=== PATIENT | female | born 1975 | race Two or more races ===

== ENCOUNTER 2023-07-28 18:34 | Emergency (ER) | payer OTHER, SELFPAY ==
[2023-07-28 19:04] VITALS: BP 118/78; PULSE 73; RESP 18; TEMP 36.6; O2SAT 96; BMI 34.2
--- NOTE | 2023-07-28 19:14 | CRLHL7_ITS ---
For Patients: As a result of the Cures Act, medical imaging exams and procedure reports are released immediately into your electronic medical record. You may view this report before your referring provider. If you have questions, please contact your health care provider. INDICATION: Chest pain. TECHNIQUE: Chest 2 view. Permanently recorded images are archived. COMPARISON: None. FINDINGS: Cardiovascular and mediastinum: Heart size and vasculature are normal in caliber and appearance. Lungs and pleural spaces: The lungs are clear. No pleural effusion or pneumothorax. Bones and soft tissues: Unremarkable for age. IMPRESSION: No evidence of an acute pulmonary process. Dictated by Jamal Maurer MD @ 07/28/2023 8:41:21 PM (Electronically Signed)
[2023-07-28 19:22] LABS: Basophils Absolute Auto 0.03 K/uL (0.00-0.30); Basophils Percent Auto 0.5 % (0.0-3.0); Eosinophils Absolute Auto 0.21 K/uL (0.00-0.50); Eosinophils Percent Auto 3.3 % (0.0-7.0); Hematocrit 37.3 % (33.0-51.0); Hemoglobin* 12.3 gm/dL (12.0-16.0); Immature Granulocytes Abs Auto 0.02 K/uL (0.00-0.30); Immature Granulocytes Pct Auto 0.3 %; Lymphocytes Absolute Auto 2.44 K/uL (0.90-2.90); Lymphocytes Percent Auto 38.8 % (20-44); Mean Corpuscular HGB Conc 33 gm/dL (32-36); Mean Corpuscular Hemoglobin 31 pg (26-34); Mean Corpuscular Volume 94 fL (80-100); Monocytes Percent Auto 8.9 % (0.0-11.0); Neutrophils Absolute Auto 3.03 K/uL (1.7-7.0); Neutrophils Percent Auto 48.2 % (42.0-72.0); Platelet Count* 307 K/uL (140-440); RDW Coefficient of Variation % 11.9 % (11.5-15.5); Red Blood Count 3.98 m/uL (4.00-5.20); White Blood Count* 6.29 K/uL (4.50-11.00)
[2023-07-28 19:30] VITALS: BP 108/91; PULSE 73; RESP 20; O2SAT 96
[2023-07-28 19:31] LABS: Slide Review Reflex No
[2023-07-28 19:31] LABS: Appearance Urine Clear (Clear); Bilirubin Urine Negative (Negative); Blood Urine 1+ (Negative); Color Urine Yellow (Yellow); Glucose Urine Negative (Negative); Ketones Urine Negative (Negative); Leukocyte Esterase Urine Trace (Negative); Nitrite Urine Negative (Negative); Protein Urine Negative (Negative); Specific Gravity Urine >= 1.030 (1.000-1.030); Urobilinogen Urine 0.2 (0.2-1.0); pH Urine 5.5 (5.0-8.5)
[2023-07-28 19:34] LABS: Chloride* 107 mmol/L (96-114); Sodium* 136 mmol/L (135-149)
[2023-07-28] MEDS: KETOROLAC 15 MG/ML inj IVP (19:35)
[2023-07-28 19:36] LABS: Creatinine* 0.5 mg/dL (0.5-1.5); Est. Creatinine Clearance* 112.59; Estimated Glomerular Filt Rate 115 ml/min
[2023-07-28 19:37] LABS: Alanine Aminotransferase* 17 U/L (4-35); Alkaline Phosphatase* 68 U/L (40-150); Anion Gap 4 mEq/L (7-15); Aspartate Amino Transferase* 21 U/L (12-35); Bilirubin Total* 0.3 mg/dL (0.1-1.5); Blood Urea Nitrogen* 19 mg/dL (5-24); Calcium* 8.6 mg/dL (8.4-10.6); Carbon Dioxide* 25 mmol/L (20-32); Glucose* 116 mg/dL (60-115); Total Protein* 6.8 g/dL (6.0-8.3)
[2023-07-28 19:49] LABS: Troponin I* < 0.01 ng/mL (0.01-0.04)
[2023-07-28 19:59] LABS: PCR FLU A Negative PCR FLU A (Negative); PCR FLU B Negative PCR FLU B (Negative); PCR RSV Negative PCR RSV (Negative)
[2023-07-28 20:04] VITALS: PULSE 70; O2SAT 99
[2023-07-28 20:15] VITALS: PULSE 70; O2SAT 98
--- NOTE | 2023-07-28 20:15 | ED.GENADULT ---
HPI - General Adult General Date Seen: 07/28/23 Chief complaint: Chest Pain Stated complaint: chest pain Time Seen by Provider: 07/28/23 19:07 Source: patient Mode of arrival: ambulatory Limitations: no limitations History of Present Illness HPI narrative: Patient is a 47-year-old female presenting for viral symptoms. She states for the past couple weeks she has been having intermittent shortness of breath and is having chest pain. Is also having cough with congestion. Admits to muscle aches. Has not had any fevers or chills but does admit to some occasional nausea. She initially went to her clinic and was sent here for a ACS workup. She quit smoking 3 months ago. She does not have any parents and siblings that had coronary artery disease before the age of 65. She denies hemoptysis, history of cancer, recent surgeries or trauma. She is not on any current control. Has not had any unilateral leg swelling. She is not aware of any sick contacts. Currently she states she is just feeling fatigued with the midsternal chest pain. She denies ever having symptoms like this before Related Data Home Medications Medication Instructions Recorded Confirmed No Known Home Medications 07/28/23 07/28/23 Allergies Allergy/AdvReac Type Severity Reaction Status Date / Time morphine Allergy Verified 07/28/23 17:26 Review of Systems Status of ROS: Reports: 10 or more systems reviewed and unremarkable except as noted in History and below PFSH [facility] Social History Smoking Status: Never smoker How often do you have a drink containing alcohol: never How often do you have six or more drinks on one occasion: Never AUDIT-C Alcohol total score: 0 Non-prescribed substance use: denies use Exam Narrative: Exam Narrative: Const: Well-nourished, Well-developed, in mild distress Eyes: PERRL, no conjunctival injection, and symmetrical lids HENT: Atraumatic external nose and ears. Moist mucous membranes. Neck: Symmetric, trachea midline, No thyromegaly. CVS: RRR, No murmurs or gallops. Peripheral pulses 2+ and equal in all extremities RESP: Unlabored respiratory effort. Clear to auscultation bilaterally. GI: Nontender/Nondistended, No rebound or guarding. MSK:Extremities w/o deformity, Normal Active ROM Skin: Warm, Dry. No rashes or lesions. Neuro: Normal Muscle tone, No focal neurological deficits. Psych: Awake, Alert, & Oriented x3. Appropriate mood and affect. Const: Vital Signs, click to edit/add: Vital Signs - 24 hr 07/28/23 19:04 07/28/23 19:30 07/28/23 20:04 Temperature 97.8 F Pulse Rate 70 Pulse Rate [Pulse Oximeter] 73 73 Respiratory Rate 18 20 Blood Pressure [Ri ght Upper Arm] 118/78 108/91 H Pulse Oximetry 96 96 99 Oxygen Delivery Me thod Room Air Room Air 07/28/23 20:15 07/28/23 20:30 Temperature Pulse Rate 70 70 Pulse Rate [Pulse Oximeter] Respiratory Rate Blood Pressure [Ri ght Upper Arm] Pulse Oximetry 98 97 Oxygen Delivery Me thod Course Vital Signs Vital signs: Initial Vital Signs Temperature 97.8 F 07/28/23 19:04 Temperature Source Temporal Artery Scan 07/28/23 19:04 Pulse Rate 73 07/28/23 19:04 Respiratory Rate 18 07/28/23 19:04 Blood Pressure 118/78 07/28/23 19:04 Blood Pressure Mean 91 07/28/23 19:04 Blood Pressure Position Sitting 07/28/23 19:04 Pulse Oximetry 96 07/28/23 19:04 Oxygen Delivery Method Room Air 07/28/23 19:04 Vital Signs Temperature 97.8 F 07/28/23 19:04 Pulse Rate 73 07/28/23 19:04 Respiratory Rate 18 07/28/23 19:04 Blood Pressure 118/78 07/28/23 19:04 Pulse Oximetry 96 07/28/23 19:04 Oxygen Delivery Method Room Air 07/28/23 19:04 Temperature 97.8 F 07/28/23 19:04 Pulse Rate 70 07/28/23 20:30 Respiratory Rate 20 07/28/23 19:30 Blood Pressure 108/91 H 07/28/23 19:30 Pulse Oximetry 97 07/28/23 20:30 Oxygen Delivery Method Room Air 07/28/23 19:30 Medications Administered Medications: Discontinued Medications Generic Name Dose Route Start Last Admin Trade Name Freq PRN Reason Stop Dose Admin Ketorolac Tromethamine 15 mg 07/28/23 19:14 07/28/23 19:35 Ketorolac 15 Mg/Ml Inj IVP 07/28/23 19:15 15 mg ONCE ONE Administration Medical Decision Making MDM Narrative Medical decision making narrative: Patient is a 47-year-old female presenting to emergency department for appears to be viral like symptoms. Symptoms have been on off for the past 2 weeks. She was sent here by the clinic for a a ACS workup. While she is having some shortness of breath she is currently PERC negative and PE is very unlikely. Will order chest x-ray to look for signs of pneumonia or pneumothorax. EKG, troponin order to look for signs of ACS. Also ordered CBC and CMP. Urinalysis, COVID/flu/RSV also ordered. COVID/flu/RSV is negative. CBC, CMP returned showing no concerning findings. Urinalysis does not appear to show a UTI. Troponin within normal limits an EKG shows no concerning findings. Chest x-ray also shows no concerning findings. Considering the length of her symptoms I do not believe a repeat troponin is necessary. She appears to be having some kind of viral syndrome. Heart score is 3. She is safe for discharge. Lab Data Labs: Lab Results 07/28/23 07/28/23 Range/Units 19:10 19:25 WBC 6.29 (4.50-11.00) K/uL RBC 3.98 L (4.00-5.20) m/uL Hgb 12.3 (12.0-16.0) gm/dL Hct 37.3 (33.0-51.0) % MCV 94 (80-100) fL MCH 31 (26-34) pg MCHC 33 (32-36) gm/dL RDW Coeff of Rima 11.9 (11.5-15.5) % Plt Count 307 (140-440) K/uL Neut % (Auto) 48.2 (42.0-72.0) % Lymph % (Auto) 38.8 (20-44) % Whitman % (Auto) 8.9 (0.0-11.0) % Eos % (Auto) 3.3 (0.0-7.0) % Baso % (Auto) 0.5 (0.0-3.0) % Neut # (Auto) 3.03 (1.7-7.0) K/uL Lymph # (Auto) 2.44 (0.90-2.90) K/uL Whitman # (Auto) 0.60 (0.00-0.90) K/UL Eos # (Auto) 0.21 (0.00-0.50) K/uL Baso # (Auto) 0.03 (0.00-0.30) K/uL Abs Immat Gran (auto) 0.02 (0.00-0.30) K/uL Imm/Tot Granulo (auto) 0.3 % Sodium 136 (135-149) mmol/L Potassium 4.0 (3.6-5.1) mmol/L Chloride 107 (96-114) mmol/L Carbon Dioxide 25 (20-32) mmol/L Anion Gap 4 L (7-15) mEq/L BUN 19 (5-24) mg/dL Creatinine 0.5 (0.5-1.5) mg/dL Estimated Creat Clear 112.59 Estimated GFR 115 ml/min Glucose 116 H (60-115) mg/dL Calcium 8.6 (8.4-10.6) mg/dL Total Bilirubin 0.3 (0.1-1.5) mg/dL AST 21 (12-35) U/L ALT 17 (4-35) U/L Alkaline Phosphatase 68 (40-150) U/L Troponin I < 0.01 L (0.01-0.04) ng/mL Total Protein 6.8 (6.0-8.3) g/dL Albumin 4.0 (3.3-5.0) g/dL Urine Color Yellow (Yellow) Urine Appearance Clear (Clear) Urine pH 5.5 (5.0-8.5) Ur Specific [place] >= 1.030 (1.000-1.030) Urine Protein Negative (Negative) Urine Glucose (UA) Negative (Negative) Urine Ketones Negative (Negative) Urine Blood 1+ A (Negative) Urine Nitrite Negative (Negative) Urine Bilirubin Negative (Negative) Urine Urobilinogen 0.2 (0.2-1.0) Ur Leukocyte Esterase Trace A (Negative) Urine RBC 2-5 A (0-2) Urine WBC 2-5 (0-5) Ur Squamous Epith Cells Few (None-Few) Urine Bacteria Few A (None) SARS-CoV-2 (PCR) Negative SARS-CoV-2 (Negative) Influenza Type A (PCR) Negative PCR FLU A (Negative) Influenza Type B (PCR) Negative PCR FLU B (Negative) RSV (PCR) Negative PCR RSV (Negative) Imaging Data Chest x-ray: Radiologist's impression: No evidence of an acute pulmonary process. Dictated by Jamal Maurer MD @ 07/28/2023 8:41:21 PM ECG Data Attestation: I personally reviewed and interpreted this ECG as follows: Prior ECG tracings: available for review Interpretation: EKG shows normal sinus rhythm with a rate 67 beats per minute, normal intervals, normal axis, no ST abnormalities. There are inverted T-waves in V1 but this can be normal and is nondiagnostic. Appears similar to previous EKG from earlier today Discharge Plan Discharge Clinical Impression: Acute viral syndrome, Atypical chest pain Patient Disposition: Home, Self-Care Condition: Stable Instructions: Noncardiac Chest Pain (ED) Additional Instructions: Follow-up with your primary care provider if symptoms persist. Return to the emergency department for new or worsening symptoms Prescriptions: No Action No Known Home Medications Follow Up/Referrals: Provider,Not a Local [Primary Care Provider] - Stand Alone Forms: [employer] Info Instructions
[2023-07-28 20:30] VITALS: PULSE 70; O2SAT 97
[2023-07-28 20:34] LABS: SARS PCR* Negative SARS-CoV-2 (Negative)
[2023-07-28 20:42] LABS: Bacteria Urine Few; Squamous Epithelial Cell Urine Few (None-Few)
== END 2023-07-28 21:06 | disposition home or self-care (01) ==
PROVIDERS: Emergency Provider Student in an Organized Health Care Education/Training Program
DX: R07.89 Other chest pain (principal); B34.9 Viral infection, unspecified
CPT/HCPCS: 36415; 71046; 80053; 81001; 84484; 85025; 87086; 87631; 93005; 96374; 99283; 99284; 99285; J1885

== ENCOUNTER 2023-10-31 21:13 | Emergency (ER) | payer OTHER, SELFPAY ==
[2023-10-31 21:22] VITALS: BP 127/63; PULSE 91; RESP 18; TEMP 36.6; O2SAT 98; BMI 33.5
--- NOTE | 2023-10-31 21:39 | ED.GENADULT ---
HPI - General Adult General Date Seen: 10/31/23 Chief complaint: Back Injury/Pain Stated complaint: Lower back pain Time Seen by Provider: 10/31/23 21:37 History of Present Illness HPI narrative: 48-year-old female presenting to the ER today for low back pain. She has a history of arthritis and a previous L4 injury. She says she 1st injured her back about a year 2 ago when she was living in [place], [place]. She apparently got her foot caught in an elevator and then fell and landed below of her weight on her knees, sending forceps to her back. She can not recall exactly what her injuries were. It sounds like she had x-rays or scans that did not show any broken bones but she had injury to L4. She has been had knee pain ever since then. She says her back has not been right since it was injured. It sounds like the pain flares up from time to time. It has flared up again starting yesterday or the day before. She is having 9/10 pain in her low back. She says it is throughout the lumbar spine (she shows me by palpation essentially from the lower thoracic spine all the way down to the sacrum and from side to side across the posterior pelvis. The pain does not radiate down her legs. No associated numbness or tingling. Normal bowel and bladder function. No fevers. No recent falls or injuries. She says partly her back slurring up because she has to lift in bed work and partly it is flaring up because she twisted her back when she was getting out of a car and may have re-injured it. It is exacerbated when she tries to lift or turn at work. It does not radiate down her legs. No anterior abdominal pain. No dysuria, urgency, hematuria, frequency. No fever. No history of diabetes or immunosuppression. Related Data Previous Rx's Medication Instructions Recorded albuterol sulfate 90 mcg/actuation 2 puff inhalation Q4-6H PRN 09/02/23 aerosol inhaler shortness of breath or wheezing #6.7 grams Allergies Allergy/AdvReac Type Severity Reaction Status Date / Time morphine Allergy Verified 09/02/23 14:11 PFSH PFS Social History Smoking Status: Current some day smoker What tobacco products do you use: cigarettes How often do you have a drink containing alcohol: never How often do you have six or more drinks on one occasion: Never AUDIT-C Alcohol total score: 0 Non-prescribed substance use: denies use Exam Narrative: Exam Narrative: Constitutional: Appears well-developed and well-nourished. Alert. Conversant. Non toxic. HENT: Head: Atraumatic. Nose: Nose normal. Mouth/Throat: Oral mucosa is clear and moist. no trismus Eyes: Conjunctivae normal. EOM normal. Pupils equal, round, and reactive to light. No scleral icterus. Neck: Normal range of motion. Neck supple. No tracheal deviation present. Cardiovascular: Normal rate, regular rhythm. No gallop. No friction rub. No murmur heard. Symmetric PT artery pulses Pulmonary/Chest: Effort normal. No stridor. No respiratory distress. No wheezes. No rales. No rhonchi . No tenderness. Abdominal: Soft. No distension. No mass. No tenderness. No rebound. No guarding. Musculoskeletal: RUE: Normal range of motion. No tenderness. No deformity LUE: Normal range of motion. No tenderness. No deformity RLE: Normal range of motion. No edema. No tenderness. No deformity LLE: Normal range of motion. No edema. No tenderness. No deformity She does have tenderness on the lower lumbar spine to even light palpation. No step-off. No abrasion. No erythema. No rash. Pelvis is stable. Neurological: Alert and oriented to person, place, and time. Normal strength. CN II-VII intact. No sensory deficit. GCS eye subscore is 4. GCS verbal subscore is 5. GCS motor subscore is 6. Normal coordination Sensory: Normal light touch sensation bilaterally on the anteromedial thigh (L3), medial malleolus (L4), dorsal first web space (L5), lateral malleolus (S1). Strength: 5/5 strength hip flexors (L3) on the right and left 5/5 strength in the quadriceps (L4) on the right and left 5/5 strength in the tibialis anterior 5/5 strength in the EHL (L5) on the right and left 5/5 strength in the gastrocnemius (S1) on the right and left 5/5 strength in the hamstring on the right and left DTRs: Not elicitable bilaterally in the patellar tendons. Not elicitable bilaterally and Achilles tendons. Negative straight leg raise bilaterally. Skin: Skin is warm and dry. No rash noted. No pallor. Normal capillary refill. Psychiatric: Normal mood. Normal affect, allowing for pain.. Const: Vital Signs, click to edit/add: Vital Signs - 24 hr 10/31/23 21:22 Temperature 97.9 F Pulse Rate [Pulse Oximeter] 91 Respiratory Rate 18 Blood Pressure [Le ft Upper Arm] 127/63 Pulse Oximetry 98 Oxygen Delivery Me thod Room Air Course Vital Signs Vital signs: Initial Vital Signs Temperature 97.9 F 10/31/23 21:22 Temperature Source Temporal Artery Scan 10/31/23 21:22 Pulse Rate 91 10/31/23 21:22 Respiratory Rate 18 10/31/23 21:22 Blood Pressure 127/63 10/31/23 21:22 Blood Pressure Mean 84 10/31/23 21:22 Blood Pressure Position Sitting 10/31/23 21:22 Pulse Oximetry 98 10/31/23 21:22 Oxygen Delivery Method Room Air 10/31/23 21:22 Vital Signs Temperature 97.9 F 10/31/23 21:22 Pulse Rate 91 10/31/23 21:22 Respiratory Rate 18 10/31/23 21:22 Blood Pressure 127/63 10/31/23 21:22 Pulse Oximetry 98 10/31/23 21:22 Oxygen Delivery Method Room Air 10/31/23 21:22 Temperature 97.9 F 10/31/23 21:22 Pulse Rate 91 10/31/23 21:22 Respiratory Rate 18 10/31/23 21:22 Blood Pressure 127/63 10/31/23 21:22 Pulse Oximetry 98 10/31/23 21:22 Oxygen Delivery Method Room Air 10/31/23 21:22 Medical Decision Making MDM Narrative Medical decision making narrative: This patient presented with back pain. She has had trouble with low back pain for the past year to ever since she had a fall with an L4 injury that occurred while she was living in [place]. She re-exacerbate her back a couple of days ago. Broad differential considered. The patient did not sustain any trauma, therefore x-rays are not necessary due to the low likelihood of fracture or subluxation. No red flag symptoms to suggest CT and/or MRI is indicated at this point. The patient has not had a fever, saddle/perineal anesthesia, bilateral foot numbness, or bowel or bladder dysfunction. There is no clinical evidence of cauda equina syndrome, discitis, spinal/epidural space hematoma or epidural abscess. The neurological exam is normal and the patient's symptoms seem consistent with a musculoskeletal issues and significant muscle spasm. The patient wants to drive herself home so cannot receive any sedating medications here in the ER. She has been using some [id number] medications but is unsure about the doses. I recommended that she make sure she take ibuprofen 600 mg per dose every 6 hours. Avoid aspirin other NSAIDs in addition to the ibuprofen. We will also give her [facility] prescription for Flint-10 tablets (1-2 q.4-6 hours p.r.n.). Opiate and sedation precautions reviewed. Ice or heat to the back and stretching exercises. No heavy lifting, bending or twisting. Return if increasing pain, numbness, weakness, or bowel or bladder dysfunction. The patient was advised to schedule follow-up with their primary doctor (referral to the [facility] given because she has not really established primary care yet here in [place]) within 2-3 days to re-assess symptoms. Return precautions reviewed and questions answered. Discharge Plan Discharge Clinical Impression: Low back pain Patient Disposition: Home, Self-Care Condition: Stable Instructions: Acute Low Back Pain (ED) Additional Instructions: As we discussed, please come back to the ER right away if you have worsening pain in your low back, numbness or weakness radiating down her leg, problems with bowel or bladder function, fever, or any other concerns. Use ibuprofen 600 mg per dose every 6 hours to help relieve your pain. Use the prescription pain killer hydrocodone only if needed for pain uncontrolled by ibuprofen. Use caution with hydrocodone because it causes drowsiness and dizziness. Do not drive a car for 6 hours after you take hydrocodone. Hydrocodone code own can also be addictive. Please please [phone] schedule an ER follow up appointment for your back pain Prescriptions: No Action albuterol sulfate 90 mcg/actuation HFA aerosol inhaler 2 puff inhalation Q4-6H PRN (Reason: shortness of breath or wheezing) Qty: 6.7 0RF Follow Up/Referrals: Provider,Not a Local [Primary Care Provider] - Stand Alone Forms: [employer] Info Instructions
== END 2023-10-31 22:17 | disposition home or self-care (01) ==
LOC: ED 22:05
PROVIDERS: Emergency Provider Emergency Medicine
DX: M54.50 Low back pain, unspecified (principal)
CPT/HCPCS: 99282; 99283

== ENCOUNTER 2023-11-16 19:28 | Emergency (ER) | payer OTHER, SELFPAY ==
[2023-11-16 19:50] VITALS: BP 109/65; PULSE 89; RESP 18; TEMP 36.8; O2SAT 98; BMI 34.6
[2023-11-16 22:10] LABS: Appearance Urine Cloudy (Clear); Bilirubin Urine Negative (Negative); Blood Urine 2+ (Negative); Color Urine Yellow (Yellow); Glucose Urine Negative (Negative); Ketones Urine Negative (Negative); Leukocyte Esterase Urine Negative (Negative); Nitrite Urine Negative (Negative); Protein Urine Negative (Negative); Specific Gravity Urine >= 1.030 (1.000-1.030); Urobilinogen Urine 0.2 (0.2-1.0)
[2023-11-16 22:22] LABS: Bacteria Urine Moderate; RBC Urine 0-2 (0-2); Squamous Epithelial Cell Urine Moderate (None-Few)
--- NOTE | 2023-11-16 22:50 | ED_ITS ---
HPI - General Adult General Chief complaint: Abdominal Pain Stated complaint: pain in abdomen Time Seen by Provider: 11/16/23 19:31 History of Present Illness HPI narrative: lower abd pain started last night. states from vaginal up into lower abd . denies constipation, denies urinary concern or bleeding. took benadryl at home for this. states out of her norco for spinal pain and has trouble sleeping. 48 Year old woman presenting to the emergency department with concern of persistent somewhat crampy low abdominal pain. This began last night. She denies any dysuria or hematuria. She does struggle with constipation historically but has been having regular bowel movements. She denies a history of ovarian cysts. Does have a Mirena that has been in for a few years. This was placed for menorrhagia/dysmenorrhea. She has been spotting a little the last 1-2 months. Otherwise does not have regular periods. Took some diphenhydramine apparently for this pain this evening. Denies vaginal discharge other than the spotting. Does have a history of some degree of chronic low back pain and was seen in this emergency department a couple of weeks ago. Underlying arthritis and apparently an L4 injury. Was given small quantity of [place]. Related Data Previous Rx's Medication Instructions Recorded albuterol sulfate 90 mcg/actuation 2 puff inhalation Q4-6H PRN 09/02/23 aerosol inhaler shortness of breath or wheezing #6.7 grams Allergies Allergy/AdvReac Type Severity Reaction Status Date / Time morphine Allergy Verified 09/02/23 14:11 Review of Systems Status of ROS: Reports: 6 or more systems reviewed and unremarkable except as noted in History and below PFSH PFSH Social History Smoking Status: Former smoker What tobacco products do you use: cigarettes Smoking quit date/years: <= 15 years ago How often do you have a drink containing alcohol: never How often do you have six or more drinks on one occasion: Never AUDIT-C Alcohol total score: 0 Non-prescribed substance use: denies use Exam Narrative: Exam Narrative: Pleasant. By the time I am seeing Ms. Antoine in very busy emergency department she appears to have been able to sleep. She wakes and is a little sleepy. Easily conversant though. Breathing easily. Lungs are clear. Heart i n regular rate and rhythm without murmur rub or gallop. Abdomen is soft and tender across the pelvis. Mild to moderately tender. No flank pain. Abdomen is soft without peritoneal signs. She is well-perfused and extremities are without edema. Genitourinary exam was not done Const: Vital Signs, click to edit/add: Vital Signs - 24 hr 11/16/23 19:50 11/17/23 02:05 Temperature 98.2 F 98.4 F Pulse Rate [Pulse Oximeter] 89 76 Respiratory Rate 18 14 Blood Pressure [Ri t Upper Arm] 109/65 114/62 Pulse Oximetry 98 97 Oxygen Delivery Me thod Room Air Room Air Documenting provider has reviewed patient's vital signs: yes Course Vital Signs Vital signs: Initial Vital Signs Temperature 98.2 F 11/16/23 19:50 Temperature Source Temporal Artery Scan 11/16/23 19:50 Pulse Rate 89 11/16/23 19:50 Respiratory Rate 18 11/16/23 19:50 Blood Pressure 109/65 11/16/23 19:50 Blood Pressure Mean 79 11/16/23 19:50 Blood Pressure Position Sitting 11/16/23 19:50 Pulse Oximetry 98 11/16/23 19:50 Oxygen Delivery Method Room Air 11/16/23 19:50 Vital Signs Temperature 98.2 F 11/16/23 19:50 Pulse Rate 89 11/16/23 19:50 Respiratory Rate 18 11/16/23 19:50 Blood Pressure 109/65 11/16/23 19:50 Pulse Oximetry 98 11/16/23 19:50 Oxygen Delivery Method Room Air 11/16/23 19:50 Temperature 98.4 F 11/17/23 02:05 Pulse Rate 76 11/17/23 02:05 Respiratory Rate 14 11/17/23 02:05 Blood Pressure 114/62 11/17/23 02:05 Pulse Oximetry 97 11/17/23 02:05 Oxygen Delivery Method Room Air 11/17/23 02:05 Medications Administered Medications: Discontinued Medications Generic Name Dose Route Start Last Admin Trade Name Freq PRN Reason Stop Dose Admin Ketorolac Tromethamine 60 mg 11/17/23 00:57 11/17/23 01:01 Ketorolac 60 Mg/2 Ml Inj IM 11/17/23 00:58 60 mg ONCE ONE Administration Medical Decision Making [facility] Narrative Medical decision making narrative: Do actually have ultrasound in house at the moment. With this spotting going on for 1 maybe 2 months, would seem prudent to do a pelvic ultrasound. Differential does include with threatened miscarriage, ectopic preg sohail, ovarian cyst, constipation and abdominal gas with colicky pain, BV though does not have any unusual discharge per her report. Would check labs though looking for red flags possible other indication of infection, diverticulitis, enteritis, colitis. No diarrhea though with regard to the latter.. Did discuss findings of pelvic ultrasound with broadcast maintenance engineer. Due to abdominal gas could not visualize ovaries though blood flow look good. IUD in place. No ectopic noted. Discussed findings with Ms. Antoine. She had fallen asleep again. Still uncomfortable, she would appreciate, deferring to my judgment, any pain medication. Ordered for IM ketorolac. Study:?US Pelvis PELVIS TV-11/16/2023 11:42:29 PM Ordering Physician:?JOHN DORADO M.D. Final Report: INDICATION: Pelvic pain & spotting. TECHNIQUE: Ultrasound pelvis transvaginal for better assessment or to better visualize the endometrium. Real-time sonographic images with spectral and color Doppler imaging of the ovaries were obtained. COMPARISON: None. FINDINGS: Uterus: 7.9 x 3.6 x 5.0 cm. Heterogenous echotexture of the myometrium. No masses. Endometrium: Transvaginal imaging was performed to better evaluate the endometrium. IUD is noted, and appears to be in appropriate position. No sign of endometrial mass or fluid. Ovaries are not visualized. No ovarian or adnexal masses. Normal arterial and venous blood flow is demonstrated in both ovaries. Cul-de-sac: No significant free fluid. IMPRESSION: 1. IUD appears to be in appropriate position. 2. Ovaries are not visualized 3. Mild heterogeneity of the uterus, non-specific but can be seen in the setting of adenomyosis. Labs are reassuring otherwise. I do not think necessitates further evaluation. I am not certain that findings of adenomyosis, while might explain spotting, do not necessarily explain the broad pelvic discomfort. I think this is more related to gas perhaps. She was tender though discretely on exam to uterine area/central suprapubic. On reassessment and again after sleeping again a, reports improvement with ketorolac. See patient discharge plan for further discussion Lab Data Lab results reviewed: Yes I reviewed the patient's lab results Labs: Lab Results 11/16/23 11/16/23 Range/Units 22:05 23:15 WBC 6.77 (4.50-11.00) K/uL RBC 4.00 (4.00-5.20) m/uL Hgb 12.1 (12.0-16.0) gm/dL Hct 37.6 (33.0-51.0) % MCV 94 (80-100) fL MCH 30 (26-34) pg MCHC 32 (32-36) gm/dL RDW Coeff of Rima 12.4 (11.5-15.5) % Plt Count 303 (140-440) K/uL Neut % (Auto) 45.2 (42.0-72.0) % Lymph % (Auto) 41.9 (20-44) % [place] % (Auto) 7.8 (0.0-11.0) % Eos % (Auto) 4.4 (0.0-7.0) % Baso % (Auto) 0.4 (0.0-3.0) % Neut # (Auto) 3.05 (1.7-7.0) K/uL Lymph # (Auto) 2.84 (0.90-2.90) K/uL [place] # (Auto) 0.50 (0.00-0.90) K/UL Eos # (Auto) 0.30 (0.00-0.50) K/uL Baso # (Auto) 0.03 (0.00-0.30) K/uL Abs Immat Gran (auto) 0.02 (0.00-0.30) K/uL Imm/Tot Granulo (auto) 0.3 % Sodium 140 (135-149) mmol/L Potassium 3.8 (3.6-5.1) mmol/L Chloride 110 (96-114) mmol/L Carbon Dioxide 29 (20-32) mmol/L Anion Gap 1 L (7-15) mEq/L BUN 19 (7-30) mg/dL Creatinine 0.7 (0.5-1.5) mg/dL Estimated Creat Clear 76.04 Estimated GFR 105 ml/min Glucose 108 (60-115) mg/dL Calcium 8.8 (8.4-10.6) mg/dL Urine Color Yellow (Yellow) Urine Appearance Cloudy A (Clear) Urine pH 6.0 (5.0-8.5) Ur Specific [place] >= 1.030 (1.000-1.030) Urine Protein Negative (Negative) Urine Glucose (UA) Negative (Negative) Urine Ketones Negative (Negative) Urine Blood 2+ A (Negative) Urine Nitrite Negative (Negative) Urine Bilirubin Negative (Negative) Urine Urobilinogen 0.2 (0.2-1.0) Ur Leukocyte Esterase Negative (Negative) Urine RBC 0-2 (0-2) Urine WBC 5-10 A (0-5) Ur Squamous Epith Cells Moderate A (None-Few) Urine Bacteria Moderate A (None) Urine HCG, Qual Negative (Negative) Discharge Plan Discharge Clinical Impression: Pelvic pain Patient Disposition: Home, Self-Care Condition: Improved Additional Instructions: I am happy you are feeling improved. It appears you might have some inflammation of your uterus. Can take up to 800 mg of ibuprofen or up to 1000 mg of acetaminophen per dose. Alternative to the ibuprofen might take up to 500 mg naproxen 2 times daily. Would ask you to call tomorrow to schedule with a primary care to discuss next steps in evaluation and/or management of your IUD. Return for marked increase in persistent pain, associated fever, repeated vomiting. Return also for increased bleeding such that are soaking through 1 heavy menstrual pad an hour for 2 consecutive hours. Prescriptions: No Action albuterol sulfate 90 mcg/actuation HFA aerosol inhaler 2 puff inhalation Q4-6H PRN (Reason: shortness of breath or wheezing) Qty: 6.7 0RF Follow Up/Referrals: Provider,Not a Local [Primary Care Provider] - Stand Alone Forms: peerTransfer Info Instructions
--- NOTE | 2023-11-16 23:09 | US_ITS ---
Patient: RODRI NARANJO Facility:?[facility] Patient ID:?[id number] Site Patient ID:?[id number]. Site :?[id number] Study:?US-Pelvis PELVIS TV-11/16/2023 11:42:29 PM Ordering Physician:?CLIVE HERNANDEZ M.D. Final Report: INDICATION: Pelvic pain & spotting. TECHNIQUE: Ultrasound pelvis transvaginal for better assessment or to better visualize the endometrium. Real-time sonographic images with spectral and color Doppler imaging of the ovaries were obtained. COMPARISON: None. FINDINGS: Uterus: 7.9 x 3.6 x 5.0 cm. Heterogenous echotexture of the myometrium. No masses. Endometrium: Transvaginal imaging was performed to better evaluate the endometrium. IUD is noted, and appears to be in appropriate position. No sign of endometrial mass or fluid. Ovaries are not visualized. No ovarian or adnexal masses. Normal arterial and venous blood flow is demonstrated in both ovaries. Cul-de-sac: No significant free fluid. IMPRESSION: 1. IUD appears to be in appropriate position. 2. Ovaries are not visualized 3. Mild heterogeneity of the uterus, non-specific but can be seen in the setting of adenomyosis. Dictated by Marcella Harris MD @ 11/17/2023 1:24:54 AM Signed by:?Marcella Harris MD @11/17/2023 1:24:54 AM (Electronic Signature)
[2023-11-16 23:24] LABS: Basophils Absolute Auto 0.03 K/uL (0.00-0.30); Basophils Percent Auto 0.4 % (0.0-3.0); Eosinophils Percent Auto 4.4 % (0.0-7.0); Hematocrit 37.6 % (33.0-51.0); Hemoglobin* 12.1 gm/dL (12.0-16.0); Immature Granulocytes Abs Auto 0.02 K/uL (0.00-0.30); Immature Granulocytes Pct Auto 0.3 %; Lymphocytes Absolute Auto 2.84 K/uL (0.90-2.90); Lymphocytes Percent Auto 41.9 % (20-44); Mean Corpuscular HGB Conc 32 gm/dL (32-36); Mean Corpuscular Hemoglobin 30 pg (26-34); Mean Corpuscular Volume 94 fL (80-100); Monocytes Percent Auto 7.8 % (0.0-11.0); Neutrophils Absolute Auto 3.05 K/uL (1.7-7.0); Neutrophils Percent Auto 45.2 % (42.0-72.0); Platelet Count* 303 K/uL (140-440); RDW Coefficient of Variation % 12.4 % (11.5-15.5); White Blood Count* 6.77 K/uL (4.50-11.00)
[2023-11-16 23:26] LABS: Slide Review Reflex No
[2023-11-16 23:30] LABS: Ur HCG Qualitative* Negative (Negative)
[2023-11-16 23:43] LABS: Chloride* 110 mmol/L (96-114); Potassium* 3.8 mmol/L (3.6-5.1); Sodium* 140 mmol/L (135-149)
[2023-11-16 23:46] LABS: Anion Gap 1 mEq/L (7-15); Blood Urea Nitrogen* 19 mg/dL (7-30); Carbon Dioxide* 29 mmol/L (20-32); Creatinine* 0.7 mg/dL (0.5-1.5); Est. Creatinine Clearance* 76.04; Estimated Glomerular Filt Rate 105 ml/min
[2023-11-16 23:47] LABS: Calcium* 8.8 mg/dL (8.4-10.6); Glucose* 108 mg/dL (60-115)
[2023-11-17] MEDS: KETOROLAC 60 MG/2 ML inj IM (01:01)
[2023-11-17 02:05] VITALS: BP 114/62; PULSE 76; RESP 14; TEMP 36.9; O2SAT 97
== END 2023-11-17 02:06 | disposition home or self-care (01) ==
PROVIDERS: Emergency Provider Family Medicine
DX: R10.2 Pelvic and perineal pain (principal)
CPT/HCPCS: 36415; 76830; 80048; 81001; 81025; 85025; 87086; 96372; 99284; J1885